=== PATIENT | male | born 1975 | race Caucasian/White ===

== ENCOUNTER 2023-02-11 17:39 | Emergency (ER) | payer OTHER, SELFPAY ==
--- NOTE | ~2023-02-11 | XR_ITS ---
EXAMINATION: XR wrist LT min 3V DATE: 02/11/2023 18:04 INDICATION: Radial sided left wrist pain post fall from skateboard TECHNIQUE: Posteroanterior, ulnar deviation, oblique, and lateral views of the right wrist were obtai zohaib. COMPARISON: none FINDINGS: 2 mm posterior displacement and mild dorsal impaction of a transverse extra articular fracture across the metaphyseal region of the distal left radius. This results in for degree dorsal tilt of the dist al articular surface. There is mild comminution with cortical buckling along the posterior margin of the fracture. No other fractures identified. Normal alignment and joint spaces in the visualized left hand. IMPRESSION: 1. Minimal dorsal displacement and angulation of a distal left radial fracture. Reviewed, dictated and finalized at location A.
[2023-02-11 17:48] VITALS: BP 118/74; PULSE 71; RESP 20; TEMP 36.3; O2SAT 99
--- NOTE | 2023-02-11 17:54 | ED.UPPEXIN ---
HPI - Extremity Injury (Upper) General Chief Complaint: Extremity Injury, Upper Stated Complaint: Left Wrist History of Present Illness HPI narrative: patient was doing tricks on his sateboard an fell aning on his left wrist. patient presents with left wrist pain and swelling no deformity noted NVI intact Related Data Home Medications Medication Instructions Recorded Confirmed No Home Medications 02/11/23 02/11/23 Allergies Allergy/AdvReac Type Severity Reaction Status Date / Time No Known Allergies Allergy Verified 02/11/23 17:55 Review of Systems Review of Systems: CONSTITUTIONAL: Denies fever, chills, or sweats. EYES: Denies visual changes, redness, or discharge. ENT: Denies rhinorrhea, congestion, sore throat, or otalgia. CARDIOVASCULAR: Denies chest pain, palpitations, or edema. RESPIRATORY: Denies cough or dyspnea. GASTROINTESTINAL: Denies abdominal pain, nausea, vomiting, or diarrhea. GENITOURINARY: Denies dysuria or hematuria. SKIN: Denies rash or itching. MUSCULOSKELETAL: Denies back pain, joint pain, or myalgia. NEUROLOGIC: Denies headache, numbness, or weakness. PSYCHIATRIC: Denies anxiety or depression. PMFSH Comments At time of signature, agree with nursing past medical, surgical, social and family history. There is no relevant family history pertinent to the presenting complaint Exam Narrative: GENERAL: Well-appearing, well-nourished, and in no acute distress. HEAD: Normocephalic, atraumatic. EYES: PERRLA and EOMI. ENT: Nares clear, no rhinorrhea or epistaxis. Mucous membranes moist. NECK: Supple. CHEST: Clear to auscultation. No respiratory distress. HEART: Regular rate and rhythm. No murmur heard. Normal peripheral pulses. ABDOMEN: Soft, nontender, nondistended, normal active bowel sounds. EXTREMITIES: Normal range of motion. No edema. HAND EXAM - Skin intact, no laceration, no swelling, no erythema, normal digit cascade with flexion of fingers, median nerve, ulnar nerve, radial nerve is intact. Normal sensation of each side of each finger, can perform `ok? sign, `cross over finger test of index and middle fingers? and `thumbs up? sign, normal thumb opposition, no scissoring. good capillary refill and radial pulse. normal flexion and extension of fingers and wrist. normal supination at wrist. Normal forearm and elbow exam. mild swelling to radial fisher eel spear of wrist. SKIN: Warm, dry, no rash. NEURO: No focal deficits. Alert and oriented x3. [place] Coma Scale Eye Opening: Spontaneous 4 [place] Coma Scale Motor: Obeys Commands 6 [place] Coma Scale Verbal: Oriented 5 [place] Coma Scale Total 15 Course Course Emergency Course: splint applied by the tech - post splint exam normal, N/V/I. patient instructed to watch for increased pain, swelling, numbness, cool fingers, change in color of fingers. Elevation, ice discussed. Level of Care: Express Care Visit MDM - Extremity Injury (Upper) Imaging Data Radiologist's impression: Minimal dorsal displacement and angulation of a distal left radial fracture. Discharge Plan Discharge Clinical Impression: Sprain and strain of wrist, Fracture of wrist Patient Disposition: Home, Self-Care Condition: Stable Instructions: Wrist Injury (ED), Wrist Fracture in Adults (ED), Wrist Sprain (ED) Additional Instructions: Ice to the area 20-30 minutes 4-6 times a day Elevate above heart orthopedic splint until discontinued by orthopedic provider Dr Briscoe orthopedic concrete laborer call office Monday for follow up appointment [phone] Ibuprofen regularly for the next 2-3 days for the inflammation Follow-up with PCP if further problems or concerns -If you have any worsening of symptoms or any other concerns please go to the ED immediately. Prescriptions: No Action No Home Medications Follow-up/Referrals: Yari,Cheng Vera MD [Primary Care Provider] - Sammy Briscoe MD [Physician] - Stand Alone Forms: Wo
[2023-02-11 17:55] VITALS: BP 118/74; PULSE 71; RESP 20; TEMP 36.3; O2SAT 99
== END 2023-02-11 18:36 | disposition home or self-care (01) ==
PROVIDERS: Emergency Provider Nurse Practitioner Family; PCP Internal Medicine
DX: S63.502A Unspecified sprain of left wrist, initial encounter (principal); S66.912A Strain of unspecified muscle, fascia and tendon at wrist and hand level, left hand, initial encounter; V00.131A Fall from skateboard, initial encounter; Y93.51 Activity, roller skating (inline) and skateboarding
CPT/HCPCS: 29125; 73110; 99214; A4565; G0463

== ENCOUNTER 2023-04-14 08:59 | Outpatient (CLI) | payer BC, SELFPAY ==
--- NOTE | ~2023-04-14 | XR_ITS ---
Left wrist Technique: PA, oblique, lateral, and ulnar deviation views were obtained. Clinical History: Fracture follow-up COMPARISON: 03/16/2023 Findings: There is been continued mild interval healing of transverse fracture the distal radius as c ompared to prior exam. Stable osseous alignment.. Joint spaces are preserved. Soft tissues are unrema rkable. Impression: Continued routine interval healing of transverse fracture the distal radius. Reviewed, dictated and finalized at location M. ICAL TESTER Impression: Continued routine interval healing of transverse fracture the distal radius.
== END 2023-04-14 09:00 | disposition home or self-care (01) ==
PROVIDERS: PCP Internal Medicine; Visit Provider Orthopaedic Surgery
DX: S52.532D Colles' fracture of left radius, subsequent encounter for closed fracture with routine healing (principal); X58.XXXD Exposure to other specified factors, subsequent encounter
CPT/HCPCS: 73110